=== PATIENT | male | born 2000 | race American Indian/Alaskan Native ===

== ENCOUNTER 2021-08-24 12:02 | Emergency (ER) | payer MEDICAID, OTHER ==
--- NOTE | 2021-08-24 15:18 | XRay Report ---
CHEST 2 VIEWS INDICATION / CLINICAL INFORMATION: cough. COMPARISON: None available. FINDINGS: SUPPORT DEVICES: None. HEART / MEDIASTINUM: No significant abnormality. LUNGS / PLEURA: No significant pulmonary or pleural abnormality. No pneumothorax. ADDITIONAL FINDINGS: No significant additional findings. IMPRESSION: 1. No acute findings. Signer Name: Jassi Carbajal MD Signed: 08/24/2021 3:13 PM Workstation Name: [id number]
--- NOTE | 2021-08-24 15:31 | Emergency Department Report ---
ED General Adult HPI - General Chief complaint: Upper Respiratory Infection Stated complaint: CHEST AND THROAT PAIN Time Seen by Provider: 08/24/21 14:37 Source: patient Mode of arrival: Ambulatory Limitations: No Limitations - History of Present Illness Initial comments: 21-year-old -[place] male patient presents with complaints of sore throat, cough, and fatigue x5 days. He denies any loss of taste or smell, hemoptysis, productive cough, fever/chills/sweats, leg pain/swelling, recent long travel, or history of DVT/PE/cancer. He rates his current sore throat is 8/10 in severity. He states pain in the chest with coughing only. He is not vaccinated against COVID-19 and has not had recent COVID-19 testing performed. No past medical history or known drug allergies per patient - Related Data Previous Rx's Medication Instructions Recorded Last Taken Type Acetamin/Codeine 120-12Mg/5 ml 5 ml PO BID PRN #10 dose 06/26/14 Unknown Rx [Tylenol/Codeine] Penicillin Vk [Veetids TAB] 500 mg PO BID #20 tablet 06/26/14 Unknown Rx predniSONE [Prednisone] 40 mg PO QDAY #6 tablet 06/26/14 Unknown Rx Amoxicillin [Trimox CAP] 500 mg PO BID 10 Days #20 capsule 08/24/21 Unknown Rx Benzonatate 200 mg PO TID PRN #30 cap 08/24/21 Unknown Rx Ibuprofen [Motrin 800 MG tab] 800 mg PO Q8HR PRN #20 tablet 08/24/21 Unknown Rx Loratadine [Claritin] 10 mg PO QDAY PRN #10 tab 08/24/21 Unknown Rx Allergies Allergy/AdvReac Type Severity Reaction Status Date / Time No Known Allergies Allergy Verified 08/24/21 12:46 ED Review of Systems ROS: Stated complaint: CHEST AND THROAT PAIN Other details as noted in HPI Constitutional: malaise. denies: chills, diaphoresis, fever, weakness ENT: throat pain. denies: dental pain Respiratory: cough. denies: shortness of breath, SOB with exertion Cardiovascular: as per HPI Gastrointestinal: denies: abdominal pain Skin: denies: rash, lesions, change in color Neurological: denies: headache ED Past Medical Hx - Past Medical History Hx Diabetes: No Hx Renal Disease: No Hx Sickle Cell Disease: No Hx Seizures: No Hx Asthma: No Hx HIV: No - Surgical History Additional Surgical History: none - Social History Smoking Status: Never Smoker Substance Use Type: None - Medications Home Medications: Home Medications Medication Instructions Recorded Confirmed Last Taken Type Acetamin/Codeine 120-12Mg/5 ml 5 ml PO BID PRN #10 dose 06/26/14 Unknown Rx [Tylenol/Codeine] Penicillin Vk [Veetids TAB] 500 mg PO BID #20 tablet 06/26/14 Unknown Rx predniSONE [Prednisone] 40 mg PO QDAY #6 tablet 06/26/14 Unknown Rx Amoxicillin [Trimox CAP] 500 mg PO BID 10 Days #20 capsule 08/24/21 Unknown Rx Benzonatate 200 mg PO TID PRN #30 cap 08/24/21 Unknown Rx Ibuprofen [Motrin 800 MG tab] 800 mg PO Q8HR PRN #20 tablet 08/24/21 Unknown Rx Loratadine [Claritin] 10 mg PO QDAY PRN #10 tab 08/24/21 Unknown Rx ED Physical Exam - General Limitations: No Limitations General appearance: alert, in no apparent distress, obese - Head Head exam: Present: atraumatic, normocephalic. Absent: normal inspection - Eye Eye exam: Present: normal appearance - Neck Neck exam: Present: normal inspection, full ROM. Absent: tenderness, lymphadenopathy - Respiratory Respiratory exam: Present: normal lung sounds bilaterally. Absent: respiratory distress - Cardiovascular Cardiovascular Exam: Present: regular rate, normal rhythm - Neurological Exam Neurological exam: Present: alert, oriented X3 - Psychiatric Psychiatric exam: Present: normal affect, normal mood - Skin Skin exam: Present: warm, dry, intact, normal color. Absent: rash ED Course Vital Signs 08/24/21 08/24/21 08/24/21 12:44 17:35 17:37 Temperature 98.9 F Pulse Rate 107 H 103 H 99 H Respiratory 18 18 Rate Blood Pressure 128/83 [Left] Blood Pressure 137/83 [Right] O2 Sat by Pulse 100 Oximetry ED Medical Decision Making - Radiology Data Radiology results: report reviewed CHEST 2 VIEWS INDICATION / CLINICAL INFORMATION: cough. COMPARISON: None available. FINDINGS: SUPPORT DEVICES: None. HEART / MEDIASTINUM: No significant abnormality. LUNGS / PLEURA: No significant pulmonary or pleural abnormality. No pneumothorax. ADDITIONAL FINDINGS: No significant additional findings. IMPRESSION: 1. No acute findings. - Medical Decision Making 21-year-old -[place] male patient presents with complaints of sore throat, cough, and fatigue x5 days. He denies any loss of taste or smell, hemoptysis, productive cough, fever/chills/sweats, leg pain/swelling, recent long travel, or history of DVT/PE/cancer. He rates his current sore throat is 8/10 in severity. He states pain in the chest with coughing only. He is not vaccinated against COVID-19 and has not had recent COVID-19 testing performed. No past medical history or known drug allergies per patient Rapid strep is negative. Chest x-ray is normal. No significant abnormalities noted on physical exam. Recommend patient follows up for outpatient COVID-19 testing within the next 24 to 48 hours and self quarantine's until his results are back. Medications given for home for symptomatic treatment. Also recommend follow-up with primary care and 3 to 5 days. He is otherwise well-appearing, his vitals are within normal limits, he is stable for discharge home. Strict return precautions were discussed in detail with patient who verbalizes understanding Critical care attestation.: If time is entered above; I have spent that time in minutes in the direct care of this critically ill patient, excluding procedure time. ED Disposition Clinical Impression: Viral syndrome, Sore throat (viral) Disposition: 01 HOME / SELF CARE / HOMELESS Is pt being admited?: No Condition: Stable Instructions: Viral Respiratory Infection, [id number] Prescriptions: Benzonatate 200 mg PO TID PRN #30 cap PRN Reason: Cough Loratadine [Claritin] 10 mg PO QDAY PRN #10 tab PRN Reason: sore throat, cough Ibuprofen [Motrin 800 MG tab] 800 mg PO Q8HR PRN #20 tablet PRN Reason: pain Amoxicillin [Trimox CAP] 500 mg PO BID 10 Days #20 capsule Referrals: [facility] [Provider Group] - 3-5 Days Forms: Work/School Release Form(ED)
[2021-08-24] MEDS ORDERED: IBUPROFEN 800 MG TAB PO STA (15:40)
[2021-08-24 17:36] VITALS: BP 137/83
== END 2021-08-24 17:36 | disposition home or self-care (01) ==
LOC: ED 12:02
DX: B34.9 Viral infection, unspecified (principal); J02.8 Acute pharyngitis due to other specified organisms
CPT/HCPCS: 71046; 87116; 87430; 99284